=== PATIENT | male | born 1990 | race Caucasian/White ===

== ENCOUNTER 2018-02-14 18:35 | Emergency (ER) | payer SELFPAY ==
[2018-02-14] MEDS ORDERED: RINGERS SOLUTION,LACTATED 1,000 ML IV ONE (18:45)
--- NOTE | 2018-02-14 18:46 | ER Document Report ---
ED General - General Stated Complaint: DIABETIC EPISODE Time Seen by Provider: 02/14/18 18:38 Cannot obtain history due to: Altered mental status Notes: Patient is a 27-year-old male with unknown past medical history who presents by EMS after being found altered in a hotel stairwell. Patient is unable to provide any meaningful history. Is not oriented to year, place, only person. Denies any toxin ingestion today. No previous visits to this hospital. Patient is from [place]. - Related Data Allergies/Adverse Reactions: No Known Allergies Allergy (Verified 02/14/18 18:47) Past Medical History - General Information source: Emergency Med Personnel Cannot obtain history due to: Altered mental status - Social History Smoking Status: Unknown if Ever Smoked Family History: Reviewed & Not Pertinent Review of Systems - Review of Systems -: Yes ROS unobtainable due to patient's medical condition Physical Exam - Vital signs Vitals: Temp Pulse Ox 98.8 F 98 02/14/18 18:39 02/14/18 18:39 Interpretation: Tachycardic Notes: PHYSICAL EXAMINATION: GENERAL: Appears confused, eyes are somewhat glazed over and patient has difficulty focusing during conversation or making direct eye contact HEAD: Atraumatic, normocephalic. EYES: Pupils equal round and reactive to light, extraocular movements intact, sclera anicteric, conjunctiva are normal. ENT: nares patent, oropharynx clear without exudates. Moderately dry mucous membranes. NECK: Normal range of motion, supple without lymphadenopathy LUNGS: Breath sounds clear to auscultation bilaterally and equal. No wheezes rales or rhonchi. HEART: Regular tachycardia without murmurs ABDOMEN: Soft, nontender, normoactive bowel sounds. No guarding, no rebound. No masses appreciated. EXTREMITIES: Normal range of motion, no pitting or edema. No cyanosis. NEUROLOGICAL: Face symmetric. Tongue protrudes midline. Extraocular motions intact. Pupils are 2 mm and equally reactive. Moderately slurred speech. Gait deferred. Follow commands in all extremities 5 out of 5 strength in both the distal and proximal upper and lower extremities bilaterally.. Sensation is grossly intact throughout. Mild resting global tremor PSYCH: Lethargic but responds to voice. Oriented only to person. SKIN: Warm, Dry, normal turgor, no rashes or lesions noted. Course - Re-evaluation Re-evalutation: 02/14/18 18:44 Patient presents confused, oriented only to person, tachycardic, after being found confused in a stairwell of a hotel just prior to arrival. The patient's physical examination is without any evidence of acute trauma. There are no focal neurologic deficits. Patient is afebrile, normoglycemic at time of arrival although was initially with a BGL of 66 at time of EMS assessment. I do not suspect that true hypoglycemia is the etiology of the patient's presentation as he has not had any significant improvement in his mentation here and now has normalization of his blood glucose. Clinical presentation is most consistent with an acute toxidrome given patient's overall appearance, tachycardia, no localizing symptoms on exam other than altered mental status and global confusion. However given the undifferentiated nature of the patient's presentation a CT of the head, EKG, laboratories will be obtained. Will begin IV fluid resuscitation. 02/14/18 19:01 The patient now admits that he has drank a 12 pack of beer over the course of the past 5 hours. He admits to being heavily intoxicated. The above listed workup has been discontinued as this is no longer indicated now that I have a clear etiology for the patient's altered mental status. 02/14/18 20:34 Patient is ambulate without any difficulty. Awake, talking. Has been playing on his cell phone. Clinically cleared for discharge home. At this time will discharge with return precautions and follow-up recommendations. Verbal discharge instructions given a the bedside and opportunity for questions given. Medication warnings reviewed. Patient is in agreement with this plan and has verbalized understanding of return precautions and the need for primary care follow-up in the next 24-72 hours. - Vital Signs Vital signs: Temp Pulse Resp BP Pulse Ox 98.8 F 21 H 125/55 L 97 02/14/18 18:39 02/14/18 19:01 02/14/18 19:01 02/14/18 19:01 Discharge - Discharge Clinical Impression: Alcohol intoxication Qualifiers: Complication of substance-induced condition: uncomplicated Qualified Code(s): F10.920 - Alcohol use, unspecified with intoxication, uncomplicated Altered mental status Qualifiers: Altered mental status type: disorientation Qualified Code(s): R41.0 - Disorientation, unspecified Condition: Good Disposition: HOME, SELF-CARE Additional Instructions: You were seen in the emergency department today for being drunk. Being seen in the emergency department after drinking alcohol is a serious indicator that you have a problem with alcohol. You should seek help with the attached resources for your problem drinking. Please return to the emergency room immediately if you experience any concerning symptoms including high fevers, severe headache, chest pain, difficulty breathing, abdominal pain, slurred speech, numbness or weakness in your arms or legs, or any other symptom that concerns you.
[2018-02-14 20:39] VITALS: BP 132/58
== END 2018-02-14 20:50 | disposition home or self-care (01) ==
LOC: ER 18:35
DX: F10.920 Alcohol use, unspecified with intoxication, uncomplicated (principal); R41.0 Disorientation, unspecified
CPT/HCPCS: 99285; 96360; 82962; J7120